=== PATIENT | male | born 1975 | race Caucasian/White ===

== ENCOUNTER 2018-03-19 14:10 | Emergency (ER) | payer OTHER ==
--- NOTE | 2018-03-19 14:11 | PDOC ---
History of Present Illness - General Chief Complaint: Injury Stated Complaint: RT KNEE PAIN Time Seen by Provider: 03/19/18 14:11 History Source: Patient Exam Limitations: No Limitations - History of Present Illness Initial Comments: 42 y/o male presenting to ER via private auto complaining of right knee pain and swelling. Symptoms started after he bumped his knee into a piece of furniture a week ago. He has been able to walk and bare weight on the extremity. No wound, bleeding, or drainage. 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 Denies fevers, chills, or diaphoresis. No h/o similar or gout. PCP: None Past History - Past Medical History Allergies/Adverse Reactions: Allergies Allergy/AdvReac Type Severity Reaction Status Date / Time No Known Allergies Allergy Unverified 12/10/15 20:13 Home Medications: Ambulatory Orders Methylprednisolone [Medrol Dose Arnol] 4 mg PO ASDIR #21 tablet 03/19/18 Anemia: Yes - Suicide/Smoking/Psychosocial Hx Smoking History: Never smoked Have you smoked in the past 12 months: No Number of Cigarettes Smoked Daily: 0 Hx Alcohol Use: No Drug/Substance Use Hx: No Substance Use Type: None Review of Systems - Review of Systems Able to Perform ROS?: Yes Is the patient limited French proficient: No Constitutional: No: Chills, Diaphoresis, Fever Respiratory: No: Shortness of Breath Cardiac (ROS): No: Chest Pain ABD/GI: No: Constipated, Diarrhea, Nausea, Vomiting Musculoskeletal: Yes: See HPI, Joint Pain, Joint Swelling, Muscle Pain Integumentary: No: Bruising, Erythema Neurological: No: Numbness, Paresthesia, Weakness Hematologic/Lymphatic: No: Easy Bleeding, Easy Bruising *Physical Exam - Physical Exam Comments: Constitutional: Well-developed, well-nourished male in no acute distress. Observed walking without assistance to hospital exam area. Alert and oriented x4. Answered all questions appropriately and completely. Speech was non-labored , non-pressured. HEENT: Normocephalic. No obvious external signs of trauma. Hearing grossly normal. No nasal discharge. Neck is supple, trachea is midline. No JVD. Cardiovascular: Regular rate and regular rhythm. No murmur, rubs, clicks, or gallops. Peripheral pulses: Radial pulses full. Respiratory: Breathing unlabored. Equal chest rise and fall. Clear to auscultation bilaterally. No stridor, no wheezing, no rhonchi. Gastrointestinal: abdomen is soft, non-tender, non-distended. Neuro: Alert and oriented. Moving all four extremities spontaneously. Gait normal. MSK / Skin: Warm, dry, and intact. Right knee: grossly enlarged compared to left ; swelling to lateral aspect without significance fluctuance; no calor; no skin breakdown, wound, or cellulitis lesion; no ecchymosis; no join laxity; good active and passive ROM with strength 5/5, subjective tenderness when flexing knee less than 90 degrees. Left knee grossly normal. Psych: Affect: appropriate. Mood: normal. ED Treatment Course - RADIOLOGY Radiograph Interpretation: Category Date Time Status KNEE 3 POS-RIGHT [RAD] Stat Radiology 03/19/18 14:42 Completed Medical Decision Making - Medical Decision Making *Reviewed vital signs, nursing notes, and prior visit documentation (if available). 42 y/o male w/o history of joint pathology complaining of right knee swelling and tenderness x1 week after minor traumatic injury. Afebrile. Vitals unremarkable. Suspect post traumatic inflammation or effusion. Low suspicion for bony or tendon/ligament pathology given physical exam. Low suspicion for gout or pseudogout given lack of history of similar and lack of calor. Will obtain plain film to evaluate for bony deformity. POCUS: Small lateral effusion. No obvious disruption in suprapatellar, infrapatellar, medial collateral ligament, or lateral collateral ligament. Patella intact. Small effusion noted laterally. Plain films: No sign of fracture of subluxation. No blastic or lytic lesions. Possible suprapatellar joint effusion. Discussed imaging results with pt. Offered direct steroid injection versus PO. Pt elected for PO. Answered all questions. Provided return precautions. Pt expressed verbal understanding and agreement with plan to discharge home with outpatient orthopedic and PCP follow up. Prescribed medrol dose pack. *DC/Admit/Observation/Transfer Diagnosis at time of Disposition: Knee pain, acute Qualifiers: Laterality: right Qualified Code(s): M25.561 - Pain in right knee - Discharge Dispostion Disposition: HOME Condition at time of disposition: Good Decision to Admit order: No - Prescriptions Prescriptions: Methylprednisolone [Medrol Dose Arnol] 4 mg PO ASDIR #21 tablet - Referrals Referrals: Gama Tyler MD [Staff Physician] - [facility] [place] [Provider Group] - Patient Instructions Printed Discharge Instructions: DI for Knee Pain Additional Instructions: Your xray did not show a fracture or break today. Your symptoms are likely related to swelling and inflammation in the knee. I have sent a prescription for steroids to [facility] in [place], [place]. Take as directed on the packet. You should also attempt to rest, elevate, and apply ice to the knee. You should follow up with an orthopedic doctor within the next 4-5 days. I have placed a referral for you to see Dr. Tyler. You may also be scheduled to see another doctor that works with Dr. Tyler. You will need to call to schedule an appointment. The number is included in this packet. You can also follow up with a primary care physician within the next week. I have placed a referral for you to see the [facility] [place]. You will need to call to make an appointment. The number is . The address is as follows: [address] [place] [address] Go to the nearest emergency department if your condition worsens or you feel like you need additional emergency evaluation. Print Language: TELUGU - Post Discharge Activity
--- NOTE | 2018-03-19 14:54 | PDOC ---
Attending Attestation - Resident Resident Name: Zohaib Chaudhry - ED Attending Attestation I have performed the following: I have examined & evaluated the patient, The case was reviewed & discussed with the resident, I agree w/resident's findings & plan, Exceptions are as noted - HPI HPI: 42 yo M no significant history presents with 1 week of knee pain. He states that he bumped into something, knee swelled up. His job has him on his feet for extended periods of time, so the swelling has not improved. No other injuries. He has been able to bear weight, but notes pain when he bends his knee. - Physicial Exam PE: GENERAL: Awake, alert, and fully oriented, in no acute distress HEAD: No signs of trauma EYES: PERRLA, EOMI, sclera anicteric, conjunctiva clear EXTREMITIES: R knee +swelling, tenderness to superior lateral surface. + Effusion. No patellar tenderness, no bony tenderness. Pain elicited on ROM of the R knee. Remainder of extremities with normal range of motion, no edema. No clubbing or cyanosis. No cords, erythema, or tenderness NEUROLOGICAL: Cranial nerves II through XII grossly intact. Normal speech, normal gait SKIN: Warm, Dry, normal turgor, no rashes or lesions noted. - Medical Decision Making XR obtained due to pain on bending the knee past 90 degrees. No acute findings. Offered patient arthrocentesis with steroid injection vs medrol dose turner as an outpatient. He opted for medrol dose turner. Stable for [place] home.
[2018-03-19 15:18] VITALS: BP 129/79; PULSE 81; TEMP 99; BMI 29.8
== END 2018-03-19 16:01 | disposition home or self-care (01) ==
LOC: FER 14:10
DX: M25.561 Pain in right knee (principal)
CPT/HCPCS: 73562-TC-RT-FY; 99281-25

== ENCOUNTER 2020-10-08 15:25 | Emergency (ER) | payer OTHER ==
[2020-10-08 15:29] VITALS: BP 136/94; PULSE 78; TEMP 98.8; BMI 31.4
== END 2020-10-08 16:28 | disposition home or self-care (01) ==
LOC: FER 15:25
DX: L01.00 Impetigo, unspecified (principal)
CPT/HCPCS: 87070; 87205; 99282-25

== ENCOUNTER 2021-11-26 09:24 | Emergency (ER) | payer OTHER ==
[2021-11-26 09:33] VITALS: TEMP 98.7; BMI 32.3
[2021-11-26] MEDS ORDERED: ASPIRIN 81 MG CHEWABLE TABLETS PO ONE (09:33)
[2021-11-26] MEDS ORDERED: ASPIRIN 81 MG CHEWABLE TABLETS ONE (09:34)
[2021-11-26 09:49] VITALS: BP 141/85; PULSE 85
[2021-11-26 10:00] LABS: INR 1.09 (0.83-1.09); PROTHROMBIN TIME (PATIENT) 12.6 SEC (9.7-13.0)
[2021-11-26 10:03] LABS: ACTIVATED PTT 35.8 SECONDS (25.2-36.5)
[2021-11-26 10:04] LABS: HEMATOCRIT 42.4 % (35.4-49); HEMOGLOBIN 14.7 G/dL (11.7-16.9); MCHC 34.7 g/dl (32.0-35.9); MEAN CELL VOLUME 86.4 fl (80-96); MEAN PLT VOLUME 7.6 fl (7.5-11.1); PLATELET COUNT 305.9 10^3/uL (134-434); RBC 4.91 10^6/uL (4.00-5.60); RDW 14.7 % (11.9-15.9); WHITE BLOOD COUNT 12.6 10^3/uL (4.0-10.8)
[2021-11-26] MEDS ORDERED: HEPARIN NA (PORCINE) 5,000 UNITS/ML 1ML VIAL IVPUSH ONE (10:07)
[2021-11-26] MEDS ORDERED: HEPARIN NA (PORCINE) 5,000 UNITS/ML 1ML VIAL IVPUSH PRN (10:08)
[2021-11-26] MEDS ORDERED: HEPARIN NA (PORCINE) 5,000 UNITS/ML 1ML VIAL ONE (10:10)
[2021-11-26] MEDS ORDERED: HEPARIN INFUSION - 25,000 UNITS/500 ML INFUS.BAG IVPB ONE (10:10)
[2021-11-26 10:11] LABS: ALBUMIN 4.1 g/dl (3.4-5.0); BILIRUBIN,TOTAL 1.1 mg/dl (0.2-1); CALCIUM 9.2 mg/dl (8.5-10); CREATININE 0.8 mg/dl (0.55-1.3)
[2021-11-26] MEDS ORDERED: HEPARIN INFUSION - 25,000 UNITS/500 ML INFUS.BAG IVPB SCH (10:15)
[2021-11-26] MEDS ORDERED: TICAGRELOR 90 MG TABLET PO ONE ×2 (10:15→10:30)
[2021-11-26] MEDS ORDERED: morphine CARPU-JECT 8 MG/1 ML DISP.SYRIN IVPUSH ONE (10:25)
[2021-11-26] MEDS ORDERED: morphine SULFATE 4 MG/ML VIAL ONE (10:28)
== END 2021-11-26 10:30 | disposition short-term general hospital (02) ==
LOC: FER 09:24
PROC: 3E033GC Introduction of Other Therapeutic Substance into Peripheral Vein, Percutaneous Approach (ICD-10-PCS; principal; 2021-11-26)
PROC: 3E033GC Introduction of Other Therapeutic Substance into Peripheral Vein, Percutaneous Approach (ICD-10-PCS; 2021-11-26)
PROC: 3E033NZ Introduction of Analgesics, Hypnotics, Sedatives into Peripheral Vein, Percutaneous Approach (ICD-10-PCS; 2021-11-26)
DX: I21.3 ST elevation (STEMI) myocardial infarction of unspecified site (principal)
CPT/HCPCS: 36415; 80053; 84484; 85025; 85610; 85730; 93005; 99285-25; C9803-CS; J1644; U0003; U0005